=== PATIENT | male | born 1980 | race Caucasian/White ===

== ENCOUNTER 2020-05-22 07:05 | Emergency (ER) | payer MEDICAID, SELFPAY ==
[2020-05-22 07:07] VITALS: BP 139/91; PULSE 94; RESP 19; TEMP 37.1; O2SAT 96; BMI 31.0
--- NOTE | 2020-05-22 07:20 | XR_ITS ---
PROCEDURE: XR ANKLE LT 2V CLINICAL INDICATION: injury Pain and swelling COMPARISON: No exams were available for comparison FINDINGS: There is a tiny calcific density at the tip of the medial malleolus which may be due to small avulsion fracture. There is generalized soft tissue swelling. IMPRESSION: Soft tissue swelling with small avulsion fracture at the tip medial malleolus Dictated by: Esau Renee MD 05/22/2020 08:45 Esau Renee MD in [place] 05/22/2020 08:45
--- NOTE | 2020-05-22 07:23 | HMH.EDLOEX ---
ED Disposition Clinical Impression: Ankle fracture Qualifiers: Encounter type: initial encounter Fracture type: closed Laterality: left Qualified Code(s): S82.892A - Other fracture of left lower leg, initial encounter for closed fracture Disposition: Home, Self-Care Condition on Discharge: Good Instructions: Ankle Fracture Additional Instructions: will see dr perry this am Referrals: Mickey Morris [Primary Care Provider] - Kirti Rojas DPM [Staff Physician] - - Critical Care Critical Care Time: No Attestation: On 05/22/20, the high probability of a clinically significant, sudden or life threatening deterioration of the following system(s) required my full and direct attention, intervention and personal management. The time I documented below is in addition to time spent performing reported procedures but includes the following listed in this critical care notation. Medical Decision Making - Medical Records Medical records reviewed: Yes: I reviewed the patient's medical records. - Dario Inquiry Pt receiving controlled substance: No Vital Signs: 05/22/20 07:07 Temperature 98.7 F Temperature Source Oral Pulse Rate [Left Radial] 94 H Respiratory Rate 19 Blood Pressure [Right Arm] 139/91 H Blood Pressure Mean [Right Arm] 107 Blood Pressure Source [Right Arm] Automatic Cuff Blood Pressure Position [Right Arm] Sitting 02 Sat by Pulse Oximetry 96 Oxygen Delivery Method Room Air Orders (Tests/Meds): ED MEDICATIONS Discontinued Medications Generic Name Dose Route Start Last Admin Trade Name Freq PRN Reason Stop Dose Admin Ibuprofen 800 mg 05/22/20 07:21 05/22/20 07:26 Ibuprofen 200mg/10ml Susp Udc PO 05/22/20 07:22 800 mg ONCE ONE Administration - Radiology Data #1 Image(s): Ankle Image Reviewed: Yes I reviewed the patient's radiology image Preliminary Findings: No Fracture Seen - CT Data CT Scan: Other (ankle ) Time Received: 09:[address] Reviewed: Yes: I have viewed the radiologist's interpretation Preliminary Findings: Abnormal (see report ) - Physician Consults Physician Consulted: [email or web address] Reason -: Pt condition Lower Extremity Injury HPI - General Chief Complaint: Extremity Injury, Lower Stated Complaint: ao @ 1930 1104 injury to L ankle Time Seen by Provider: 05/22/20 07:23 Mode of Arrival: Wheelchair Source of Information: Patient, Medical Record Limitations: No Limitations Description of Symptoms (Recalled from ER Triage Doc. by RN): c/o left ankle pain after falling last night when he was trying to get out of the door with his dogs. Denies any other injuries at this time. - History of Present Illness HPI Narrative: acute lt ankle injury last pm with swelling and tenderness and dec wt bearing MD complaint: ankle injury Onset (ago): day(s) Injury: Left: ankle Type of Injury: eversion Place: home Severity: severe Context: walking Associated symptoms: snap/pop sensation, swelling, unable to bear weight Other symptoms: none - Related Data Home Medications Medication Instructions Recorded Confirmed No Known Home Medications 05/22/20 05/22/20 Allergies Allergy/AdvReac Type Severity Reaction Status Date / Time No Known Allergies Allergy Verified 05/22/20 07:26 [facility] History - Hepatitis A Screen Drug use history?: No High risk sexual behaviors?: No History of sexually transmitted infection?: No Currently employed?: No Childcare worker?: No Do you have indoor plumbing?: Yes Do you have electricity?: Yes Attestation statement:: This patient has been screened for Hepatitis A risk factors. I have reviewed the patient's past medical history: Yes - Social History Alcohol Intake: never Occupational Status: employed ROS Obtained: Yes All systems reviewed & no additional complaints - Musculoskeletal Musculoskeletal: Reports as per HPI, Reports joint pain, Reports joint swelling, Reports limited range of motion Physical Exam -
--- NOTE | 2020-05-22 08:06 | CT_ITS ---
PROCEDURE: CT ANKLE LT WO CON CLINICAL HISTORY: pain Pain and swelling following injury COMPARISON: CR XR ANKLE LT 2V from 05/22/2020 TECHNIQUE: Axial images obtained with sagittal and coronal reformats. All CT scans at the facility use one or more dose reduction, viz: automated exposure control, ma/kV adjustment per patient size (including targeted exams where dose is matched to indication, i.e. head), or iterative reconstruction technique. FINDINGS: There is generalized soft tissue swelling both along the medial and lateral aspect of the ankle. There is a faint calcific density just distal to the tip of the medial malleolus with a small defect within the tip of the medial malleolus consistent with an avulsion fracture. The talar dome has an unremarkable appearance and the ankle mortise appears preserved. IMPRESSION: Minimally displaced avulsion fracture of the tip of the medial malleolus with generalized soft tissue swelling. Dictated by: Esau Renee MD 05/22/2020 08:42 Esau Renee MD in [place] 05/22/2020 08:42
[2020-05-22 09:45] VITALS: BP 132/87; PULSE 87; RESP 17; TEMP 36.7; O2SAT 99
== END 2020-05-22 09:45 | disposition home or self-care (01) ==
PROVIDERS: Emergency Provider Emergency Medicine; PCP Pediatrics
DX: S82.892A Other fracture of left lower leg, initial encounter for closed fracture (principal); W01.0XXA Fall on same level from slipping, tripping and stumbling without subsequent striking against object, initial encounter; Y92.019 Unspecified place in single-family (private) house as the place of occurrence of the external cause
CPT/HCPCS: 73600; 73700; 99282

== ENCOUNTER 2022-02-22 08:42 | Emergency (ER) | payer MEDICAID, SELFPAY ==
[2022-02-22] VITALS (7 sets, daily range): BP systolic 98–138; BP diastolic 63–88; PULSE 62–82; RESP 16–18; TEMP 36.7; O2SAT 96–98; BMI 42.5
--- NOTE | 2022-02-22 09:23 | HMH.EDABDPAI ---
ED Disposition Clinical Impression: Gastroenteritis Disposition: Home, Self-Care Condition on Discharge: Good Instructions: DI for Gastritis Prescriptions: Promethazine HCl [Phenergan 25mg tab] 25 mg PO BID #12 tab Transmission Status: Pending to [facility] Referrals: Enio Morris [Primary Care Provider] - - Critical Care Critical Care Time: No Attestation: On 02/22/22, the high probability of a clinically significant, sudden or life threatening deterioration of the following system(s) required my full and direct attention, intervention and personal management. The time I documented below is in addition to time spent performing reported procedures but includes the following listed in this critical care notation. Medical Decision Making - Medical Records Medical records reviewed: Yes: I reviewed the patient's medical records. - Dario Inquiry Pt receiving controlled substance: No Vital Signs: 02/22/22 08:44 02/22/22 09:43 02/22/22 10:00 Temperature 98.1 F Temperature Source Oral Pulse Rate 82 65 Pulse Rate [Right Radial] 74 Respiratory Rate 16 16 18 Blood Pressure 138/82 111/78 Blood Pressure [Right Arm] 118/88 Blood Pressure Mean 102 90 Blood Pressure Mean [Right Arm] 98 Blood Pressure Source [Right Arm] Automatic Cuff Blood Pressure Position [Right Arm] Sitting 02 Sat by Pulse Oximetry 98 97 97 Oxygen Delivery Method Room Air 02/22/22 10:31 02/22/22 11:01 02/22/22 11:32 Temperature Temperature Source Pulse Rate 62 66 69 Pulse Rate [Right Radial] Respiratory Rate 18 Blood Pressure 98/63 L 115/72 132/86 Blood Pressure [Right Arm] Blood Pressure Mean 78 101 Blood Pressure Mean [Right Arm] Blood Pressure Source [Right Arm] Blood Pressure Position [Right Arm] 02 Sat by Pulse Oximetry 97 96 97 Oxygen Delivery Method - Lab Data Lab Results 02/22/22 09:35: WBC 6.9, RBC 4.60, Hgb 14.2, Hct 43.1, MCV 93.6, MCH 31.0, MCHC 33.1, RDW 13.5, Plt Count 265, MPV 7.6, Neut % (Auto) 61.1, Lymph % (Auto) 28.1, [place] % (Auto) 6.3, Eos % (Auto) 2.5, Baso % (Auto) 1.9, Neut # (Auto) 4.2, Lymph # (Auto) 1.9, [place] # (Auto) 0.4, Eos # (Auto) 0.2, Baso # (Auto) 0.1 02/22/22 09:35: Sodium 140, Potassium 3.5, Chloride 103, Carbon Dioxide 28, Anion Gap 12.5, BUN 10, Creatinine 0.90, Estimated Creat Clear 102, Estimated GFR 92, Est GFR ( Amer) 111, Glucose 132 H, Calcium 9.5, Total Bilirubin 0.8, AST 77 H, ALT 105 H, Alkaline Phosphatase 84, Total Protein 8.4 H, Albumin 4.5, Globulin 3.9 H, Albumin/Globulin Ratio 1.2, Lipase 67 Result diagrams: 02/22/22 09:35 02/22/22 09:35 Orders (Tests/Meds): ED MEDICATIONS Generic Name Dose Route Start Last Admin Trade Name Freq PRN Reason Stop Dose Admin Sodium Chloride 8 ml 02/22/22 09:09 Sodium Chloride 0.9% 10ml Vial IV 03/24/22 09:08 NEEDED PRN dilute pepcid Discontinued Medications Generic Name Dose Route Start Last Admin Trade Name Freq PRN Reason Stop Dose Admin Famotidine 20 mg 02/22/22 09:09 02/22/22 09:39 Famotidine 20mg/2ml Vial IV 02/22/22 09:10 20 mg ONCE ONE Administration Sodium Chloride 1,000 mls @ 999 mls/hr 02/22/22 09:15 02/22/22 09:39 Sod Chlor 0.9% 1000ml Bag IV 02/22/22 10:15 999 mls/hr .Q1H1M MOE Administration Ketorolac Tromethamine 30 mg 02/22/22 09:09 02/22/22 09:40 Ketorolac 30mg/Ml Vial IV 02/22/22 09:10 30 mg ONCE ONE Administration Ondansetron HCl 4 mg 02/22/22 09:09 02/22/22 09:39 Ondansetron 4mg/2ml Vial IV 02/22/22 09:10 4 mg ONCE ONE Administration - CT Data CT Scan: Abdomen, Pelvis Time Received: 11:[address] Reviewed: Yes: I have reviewed the patient's CT results, I have viewed the radiologist's interpretation Findings Narrative: IMPRESSION: No acute process of the abdomen or pelvis. - Reevaluation(s) Time: 11:53 Reevaluation #1: On reevaluation, patient is feeling better. Re
--- NOTE | 2022-02-22 09:44 | PC.NURSE ---
pt medicated with no new complaints . pt resting
[2022-02-22 09:50] LABS: Basophils # 0.1 K/mm3 (0-0.2); Basophils % 1.9 % (0.1-2.0); Eosinophils # 0.2 K/mm3 (0.0-0.4); Eosinophils % 2.5 % (0.1-12.0); Hematocrit 43.1 % (42.0-52.0); Hemoglobin 14.2 g/dL (14.1-18.0); Lymphocytes # 1.9 K/mm3 (0.7-4.5); Lymphocytes % 28.1 % (10-50); Mean Corpuscular HGB Conc 33.1 g/dL (31.8-35.4); Mean Corpuscular Volume 93.6 fl (80-94); Mean Platelet Volume 7.6 fl (7.4-10.4); Monocytes # 0.4 K/mm3 (0.1-1.0); Monocytes % 6.3 % (1.7-9.3); Neutrophils # 4.2 K/mm3 (1.8-7.8); Neutrophils % 61.1 % (37.0-80.0); Platelet Count 265 K/mm3 (142-424); Red Cell Distribution Width 13.5 % (11.5-17.5); White Blood Count 6.9 K/mm3 (4.8-10.8)
[2022-02-22 09:59] LABS: Alanine Aminotransferase 105 U/L (12-78); Albumin Level 4.5 g/dl (3.5-5.0); Albumin/Globulin Ratio 1.2 (1.1-1.8); Alkaline Phosphatase 84 U/L (38-126); Anion Gap 12.5 mEq/L (5-15); Aspartate Amino Transferase 77 U/L (17-59); Bilirubin,Total 0.8 mg/dl (0.2-1.3); Blood Urea Nitrogen 10 mg/dl (9-20); Calcium 9.5 mg/dl (8.4-10.2); Carbon Dioxide 28 mmol/L (22.0-30.0); Chloride 103 mmol/L (98-107); Creatinine Clearance Estimated 102 mL/min (50-200); Estimated Glomerular Filt Rate 92 ml/min (>60); GFR (African American) 111 ML/MIN (>60); Globulin 3.9 g/dL (1.3-3.2); Glucose 132 mg/dl (74-100); Lipase 67 U/L (23-300); Potassium 3.5 mmoL/L (3.5-5.1); Sodium 140 mmol/L (136-145); Total Protein,Serum 8.4 g/dl (6.3-8.2)
--- NOTE | 2022-02-22 10:00 | PC.NURSE ---
rounded on pt at this time, pt sitting up in bed, reports headache has improved. Pt states no needs at this time, call light within reach, pt oriented to call light. will continue to monitor.
--- NOTE | 2022-02-22 10:17 | CT_ITS ---
FINAL REPORT TECHNIQUE: Axial images through the abdomen and pelvis were performed without contrast.This study was performed with techniques to keep radiation doses as low as reasonably achievable, (ALARA). Individualized dose reduction techniques using automated exposure control or adjustment of mA and/or kV according to the patient's size were employed. CLINICAL HISTORY: lower abdominal pain COMPARISON: 03/18/2017 FINDINGS: ABDOMEN: The lung bases demonstrate mild bibasilar atelectasis or scarring. The heart size is normal. Limited images of the liver demonstrate fatty infiltration. The gallbladder is present. The spleen is normal. No adrenal mass is identified. The aorta is normal in caliber. There is no significant free fluid or adenopathy. There is no nephrolithiasis. There is no hydronephrosis. PELVIS: The appendix is normal. There is a small right inguinal hernia containing fat. The urinary bladder is unremarkable. There is no significant free fluid or adenopathy. IMPRESSION: No acute process of the abdomen or pelvis. Reviewed, Interpreted and Dictated by All Garcia III, MD Transcribed by Valarie Ram Authenticated and [facility]
--- NOTE | 2022-02-22 10:36 | PC.NURSE ---
pt in radiology
--- NOTE | 2022-02-22 10:55 | PC.NURSE ---
rounded on pt, requesting water, waiting on CT scan results, educated pt and verbalized understanding
--- NOTE | 2022-02-22 11:34 | PC.NURSE ---
rounded on pt, updated about scan report complete, waiting on MD to review results, no needs at this time
== END 2022-02-22 12:00 | disposition home or self-care (01) ==
PROVIDERS: Emergency Provider Emergency Medicine; PCP Family Medicine
DX: R10.9 Unspecified abdominal pain (principal); R11.2 Nausea with vomiting, unspecified; R51.9 Headache, unspecified; K21.9 Gastro-esophageal reflux disease without esophagitis
CPT/HCPCS: 36415; 74176; 80053; 83690; 85025; 96361; 96374; 96375; 99285; J2405

== ENCOUNTER 2022-02-26 10:46 | Emergency (ER) | payer MEDICAID, SELFPAY ==
--- NOTE | 2022-02-26 10:50 | PC.NURSE ---
Ivette RN at BS for triage
[2022-02-26 11:01] VITALS: BP 145/94; PULSE 74; O2SAT 95
[2022-02-26 11:17] VITALS: BP 156/113; PULSE 82; RESP 17; TEMP 36.9; O2SAT 95; BMI 45.1
--- NOTE | 2022-02-26 11:27 | PC.NURSE ---
MARGA DUPREE at for patient eval
[2022-02-26 11:31] VITALS: BP 159/106; PULSE 69; O2SAT 96
--- NOTE | 2022-02-26 11:32 | CT_ITS ---
FINAL REPORT CLINICAL HISTORY: nocturnal headaches COMPARISON: 03/18/2017 FINDINGS: Axial images of the head were obtained without contrast. Coronal reformatted images were also obtained.This study was performed with techniques to keep radiation doses as low as reasonably achievable (ALARA). Individualized dose reduction techniques using automated exposure control or adjustment of mA and/or kV according to the patient's size were employed. There is no evidence of intracranial hemorrhage or mass. The ventricular size is within normal limits. There is no evidence of shift of the midline structures. No abnormal extra axial fluid collection is identified. There are prominent proximal bilateral middle cerebral arteries of uncertain significance. No skull abnormality is seen on the bone window images. IMPRESSION: Prominent proximal bilateral middle cerebral arteries of uncertain significance. Consider correlation with MRA or CTA. Reviewed, Interpreted and Dictated by All Garcia III, MD Transcribed by Veronica Villalobos Authenticated and [facility]
--- NOTE | 2022-02-26 11:32 | HMH.EDGENADL ---
ED Disposition Clinical Impression: Vomiting, Transaminitis, Headache Disposition: Home, Self-Care Condition on Discharge: Good Instructions: DI for Diarrhea and Traveler's Diarrhea -- Adult, DI for Diarrhea and Traveler's Diarrhea -- Child, DI for Nausea -- Adult, DI for Nausea -- Child Additional Instructions: At this time was felt you are safe to be discharged home. If new or worsening symptoms please do not hesitate to return to the emergency department. Please call and schedule an appointment with one of the providers listed in the packet that was given to you at discharge for early next week. Referrals: Enio Morris [Primary Care Provider] - - Critical Care Critical Care Time: No Attestation: On 02/26/22, the high probability of a clinically significant, sudden or life threatening deterioration of the following system(s) required my full and direct attention, intervention and personal management. The time I documented below is in addition to time spent performing reported procedures but includes the following listed in this critical care notation. Medical Decision Making - Dario Inquiry Pt receiving controlled substance: No Vital Signs: 02/26/22 11:01 02/26/22 11:17 02/26/22 11:31 Temperature 98.5 F Temperature Source Oral Pulse Rate 74 69 Pulse Rate [Left Radial] 82 Respiratory Rate 17 Blood Pressure 145/94 H 159/106 H Blood Pressure [Right Arm] 156/113 H Blood Pressure Mean 111 123 Blood Pressure Mean [Right Arm] 127 02 Sat by Pulse Oximetry 95 95 96 Oxygen Delivery Method Room Air Room Air Room Air 02/26/22 12:30 Temperature Temperature Source Pulse Rate 69 Pulse Rate [Left Radial] Respiratory Rate Blood Pressure 143/92 H Blood Pressure [Right Arm] Blood Pressure Mean 115 Blood Pressure Mean [Right Arm] 02 Sat by Pulse Oximetry 96 Oxygen Delivery Method Room Air - Lab Data Lab Results 02/26/22 11:34: WBC 8.2, RBC 4.54 L, Hgb 14.0 L, Hct 43.1, MCV 95.0 H, MCH 30.8, MCHC 32.5, RDW 13.5, Plt Count 286, MPV 8.0, Neut % (Auto) 84.9 H, Lymph % (Auto) 10.5, [place] % (Auto) 3.6, Eos % (Auto) 0.2, Baso % (Auto) 0.8, Neut # (Auto) 7.0, Lymph # (Auto) 0.9, [place] # (Auto) 0.3, Eos # (Auto) 0.0, Baso # (Auto) 0.1 02/26/22 11:34: Sodium 141, Potassium 4.0, Chloride 102, Carbon Dioxide 31 H, Anion Gap 12.0, BUN 12, Creatinine 0.90, Estimated Creat Clear 96, Estimated GFR 92, Est GFR ( Amer) 111, Glucose 165 H, Calcium 9.7, Total Bilirubin 0.6, AST 98 H, ALT 129 H, Alkaline Phosphatase 84, Total Protein 8.4 H, Albumin 4.6, Globulin 3.8 H, Albumin/Globulin Ratio 1.2, Lipase 126 02/26/22 11:34: SARS-CoV-2 (PCR) Not detected, Influenza A Untype (PCR) Not detected, Influenza Type B (PCR) Not detected Result diagrams: 02/26/22 11:34 02/26/22 11:34 Orders (Tests/Meds): ED MEDICATIONS Generic Name Dose Route Start Last Admin Trade Name Freq PRN Reason Stop Dose Admin Sodium Chloride 10 ml 02/26/22 11:21 Sodium Chloride 0.9% 10ml Flush Syringe IV 03/28/22 11:20 NEEDED PRN Maintain IV Site Discontinued Medications Generic Name Dose Route Start Last Admin Trade Name Freq PRN Reason Stop Dose Admin Lactated Ringer's 1,000 mls @ 999 mls/hr 02/26/22 11:30 02/26/22 11:45 Lactated Ringer's 1000 Ml Bag IV 02/26/22 12:30 999 mls/hr .Q1H1M MOE Administration Iopamidol 100 ml 02/26/22 13:31 02/26/22 13:32 Iopamidol-370 (76%);100ml Bottle IV 02/26/22 13:32 100 ml ONCE ONE Administration Ondansetron HCl 4 mg 02/26/22 11:21 02/26/22 12:03 Ondansetron 4mg/2ml Vial IV 02/26/22 11:22 4 mg ONCE ONE Administration Sodium Chloride 10 ml 02/26/22 13:31 02/26/22 13:32 Sodium Chloride 0.9% 10ml Syr (Rad Only) IV 02/26/22 13:32 10 ml ONCE ONE Administration Sodium Chloride 50 ml 02/26/22 13:31 02/26/22 13:32 0.9 % Sodium Chloride 50 Ml Vial IV 02/26/22 13:32 50 ml ONCE ONE Administration Medical Decision Narr
--- NOTE | 2022-02-26 11:44 | PC.NURSE ---
pt to radiology via wc with military administrative technician at this time
[2022-02-26 11:46] LABS: Coronavirus 19, PCR Not Detected (NotDetected); Influenza A, PCR Not Detected (NotDetected); Influenza B, PCR Not Detected (NotDetected)
--- NOTE | 2022-02-26 11:49 | PC.NURSE ---
pt return from radiology
--- NOTE | 2022-02-26 11:50 | PC.NURSE ---
pt back from radiology
[2022-02-26 11:58] LABS: Basophils # 0.1 K/mm3 (0-0.2); Basophils % 0.8 % (0.1-2.0); Chloride 102 mmol/L (98-107); Eosinophils % 0.2 % (0.1-12.0); Hematocrit 43.1 % (42.0-52.0); Lymphocytes # 0.9 K/mm3 (0.7-4.5); Lymphocytes % 10.5 % (10-50); Mean Corpuscular HGB Conc 32.5 g/dL (31.8-35.4); Mean Corpuscular Hemoglobin 30.8 pg (27.0-31.2); Monocytes # 0.3 K/mm3 (0.1-1.0); Monocytes % 3.6 % (1.7-9.3); Neutrophils % 84.9 % (37.0-80.0); Platelet Count 286 K/mm3 (142-424); Red Blood Count 4.54 M/mm3 (4.60-6.20); Red Cell Distribution Width 13.5 % (11.5-17.5); Sodium 141 mmol/L (136-145); White Blood Count 8.2 K/mm3 (4.8-10.8)
[2022-02-26 12:01] LABS: Alanine Aminotransferase 129 U/L (12-78); Alkaline Phosphatase 84 U/L (38-126); Aspartate Amino Transferase 98 U/L (17-59); Bilirubin,Total 0.6 mg/dl (0.2-1.3); Blood Urea Nitrogen 12 mg/dl (9-20); Carbon Dioxide 31 mmol/L (22.0-30.0); Creatinine Clearance Estimated 96 mL/min (50-200); Estimated Glomerular Filt Rate 92 ml/min (>60); GFR (African American) 111 ML/MIN (>60); Lipase 126 U/L (23-300)
[2022-02-26 12:02] LABS: Albumin Level 4.6 g/dl (3.5-5.0); Albumin/Globulin Ratio 1.2 (1.1-1.8); Calcium 9.7 mg/dl (8.4-10.2); Globulin 3.8 g/dL (1.3-3.2); Glucose 165 mg/dl (74-100); Total Protein,Serum 8.4 g/dl (6.3-8.2)
--- NOTE | 2022-02-26 12:28 | PC.NURSE ---
pt updated on POC- awaiting ct report. no needs voiced at this time
[2022-02-26 12:30] VITALS: BP 143/92; PULSE 69; O2SAT 96
--- NOTE | 2022-02-26 13:06 | CT_ITS ---
FINAL REPORT TECHNIQUE: Thin section axial CT with IV contrast supplemented with multiplanar reconstruction under CT angiogram protocol. 3-D reconstructions were performed. This study was performed with techniques to keep radiation doses as low as reasonably achievable (ALARA). Individualized dose reduction techniques using automated exposure control or adjustment of mA and/or kV according to the patient''s size were employed. CLINICAL HISTORY: prominent MCA non con, vomiting FINDINGS: The distal vertebral, basilar and distal internal carotid arteries have an unremarkable appearance. No aneurysm is seen. Major intracranial vessels are patent without significant stenosis. There is ectasia of the M 1 segments of the middle cerebral arteries bilaterally. IMPRESSION: No evidence of aneurysm or dissection. Reviewed, Interpreted and Dictated by All Garcia III, MD Transcribed by Veronica Villalobos Authenticated and [facility][1]
--- NOTE | 2022-02-26 13:09 | PC.NURSE ---
ER MD at speaking with patient regarding update on POC/results
--- NOTE | 2022-02-26 13:22 | PC.NURSE ---
pt to CT via wc with operations and maintenance technican
--- NOTE | 2022-02-26 13:33 | PC.NURSE ---
pt back from CT
[2022-02-26 15:07] VITALS: BP 148/98; PULSE 97; RESP 18; TEMP 36.9; O2SAT 97
== END 2022-02-26 15:08 | disposition home or self-care (01) ==
PROVIDERS: Emergency Provider Emergency Medicine; PCP Family Medicine
DX: R51.9 Headache, unspecified (principal); R11.2 Nausea with vomiting, unspecified; R19.7 Diarrhea, unspecified; K21.9 Gastro-esophageal reflux disease without esophagitis; Z20.822 Contact with and (suspected) exposure to COVID-19
CPT/HCPCS: 70450; 70496; 80053; 83690; 85025; 96361; 96374; 99285; C9803; J2405; Q9967; U0003; U0005

== ENCOUNTER → 2022-03-29 10:38 | Outpatient (CLI) | payer MEDICAID, SELFPAY ==
--- NOTE | 2022-03-29 10:38 | MR_ITS ---
FINAL REPORT CLINICAL HISTORY: headaches with vomiting x3-4 weeks. COMPARISON: CT scan dated February 26, 2022 FINDINGS: Multiplanar MR imaging of the brain was performed without and with contrast. There is no evidence of intracranial hemorrhage or mass. No abnormal extra-axial fluid collection is seen. The ventricular size is within normal limits. There is no evidence of shift of the midline structures. The posterior fossa and brainstem have an unremarkable appearance. No area of abnormal restricted diffusion is identified. No abnormal contrast enhancement is seen. Normal major vessel vascular flow voids are noted. There is mild mucosal thickening in the maxillary sinuses and the ethmoid air cells. IMPRESSION: No acute intracranial abnormality identified. Reviewed, Interpreted and Dictated by All Garcia III, MD Transcribed by Stephenie Maki Authenticated and [facility]
== END ==
PROVIDERS: PCP Emergency Medicine; Visit Provider Emergency Medicine
DX: R51.9 Headache, unspecified (principal)
CPT/HCPCS: 70553; A9576

== ENCOUNTER → 2022-04-13 11:19 | Outpatient (CLI) | payer MEDICAID, SELFPAY ==
[2022-04-13 13:08] LABS: Erythrocyte Sedimentation Rate 16 mm/hr (0-15)
[2022-04-13 13:26] LABS: Thyroid Stimulating Hormone 2.09 uIU/mL (0.465-4.68)
[2022-04-13 14:02] LABS: Vitamin B12 917 pg/mL (239-931)
[2022-04-13 14:03] LABS: Folate 7.25 ng/mL
[2022-04-14 11:24] LABS: Rapid Plasma Reagin Ab Titer Non Reactive (NonRea<1:1)
[2022-04-14 13:10] LABS: Anti-Centromere B Antibodies <0.2 AI (0.0-0.9); Anti-DNA (DS) Ab Qn 1 IU/mL (0-9); Anti-Jo-1 <0.2 AI (0.0-0.9); Anti-Smith Antibody <0.2 AI (0.0-0.9); Antichromatin Antibodies <0.2 AI (0.0-0.9); Antiscleroderma-70 Antibodies 0.2 AI (0.0-0.9); RNP Antibodies <0.2 AI (0.0-0.9); Sjogren's Anti-SS-A 0.6 AI (0.0-0.9); Sjogren's Anti-SS-B <0.2 AI (0.0-0.9)
[2022-04-21 15:10] LABS: IgG P18 Ab. Absent (.); IgG P23 Ab. Absent (.); IgG P28 Ab. Absent (.); IgG P30 Ab. Absent (.); IgG P39 Ab. Absent (.); IgG P41 Ab. Absent (.); IgG P45 Ab. Absent (.); IgG P58 Ab. Absent (.); IgG P66 Ab. Absent (.); IgG P93 Ab. Absent (.); IgM P23 Ab. Absent (.); IgM P39 Ab. Absent (.); IgM P41 Ab. Absent (.); Lyme IgG WB Interp. Negative (.); Lyme IgM WB Interp. Negative (.)
== END ==
PROVIDERS: PCP Emergency Medicine; Visit Provider Nurse Practitioner Family
DX: R42 Dizziness and giddiness (principal); F10.11 Alcohol abuse, in remission; F19.11 Other psychoactive substance abuse, in remission; G44.52 New daily persistent headache (NDPH); G47.33 Obstructive sleep apnea (adult) (pediatric); G47.00 Insomnia, unspecified; G89.29 Other chronic pain; H53.123 Transient visual loss, bilateral; R06.83 Snoring; R11.10 Vomiting, unspecified; R73.9 Hyperglycemia, unspecified; R94.5 Abnormal results of liver function studies; Z91.89 Other specified personal risk factors, not elsewhere classified
CPT/HCPCS: 36415; 82607; 82746; 83036; 84443; 85651; 86225; 86235; 86592; 86617; 95806

== ENCOUNTER → 2022-04-19 10:14 | Outpatient (CLI) | payer MEDICAID, SELFPAY ==
--- NOTE | 2022-04-19 10:18 | CT_ITS ---
FINAL REPORT TECHNIQUE: Thin section axial CT with IV contrast supplemented with multiplanar reconstruction under CT angiogram protocol. This study was performed with techniques to keep radiation doses as low as reasonably achievable (ALARA). Individualized dose reduction techniques using automated exposure control or adjustment of mA and/or kV according to the patient''s size were employed. NASCET criteria was utilized during interpretation. CLINICAL HISTORY: Eval posterior circulation FINDINGS: Aortic arch: Arch shows no significant narrowing. Great vessel origins are widely patent. Right carotid: No significant stenosis is seen of the cervical common carotid artery. The internal carotid artery is tortuous without evidence of stenosis or occlusion. The external carotid artery is patent. Left carotid: No significant stenosis is seen of the cervical common carotid artery. The internal carotid artery is tortuous without evidence of stenosis or occlusion. The external carotid artery is patent. Vertebral: Left vertebral artery is dominant. No significant stenosis is present. Review of the remainder of the neck reveals a 31 mm left thyroid lobe mass which is nonspecific. There is mucosal thickening in the left maxillary sinus and multiple ethmoid sinuses. IMPRESSION: No evidence of significant carotid stenosis. 31 mm left thyroid lobe mass, nonspecific. Consider ultrasound of the thyroid for further evaluation. Reviewed, Interpreted and Dictated by All Garcia III, MD Transcribed by Monica Rhoades Authenticated and . [facility]
--- NOTE | 2022-04-19 10:39 | CT_ITS ---
FINAL REPORT TECHNIQUE: Thin section axial CT with IV contrast supplemented with multiplanar reconstruction under CT angiogram protocol. 3-D reconstructions were performed. This study was performed with techniques to keep radiation doses as low as reasonably achievable (ALARA). Individualized dose reduction techniques using automated exposure control or adjustment of mA and/or kV according to the patient''s size were employed. CLINICAL HISTORY: Dizziness, transient blindness, persistent headach COMPARISON: 02/26/2022 FINDINGS: The distal vertebral and basilar arteries have an unremarkable appearance. No aneurysm is seen. The left M1 segment appears smaller and more irregular than on the prior exam. This is of uncertain significance and may be due to spasm or vasculitis. The right middle cerebral artery and anterior cerebral artery appears normal. The posterior cerebral artery appears smaller than the prior exam and may be due to spasm or vasculitis. There appears to be diffuse effacement of the sulci worrisome for diffuse edema. IMPRESSION: No evidence of aneurysm or dissection. Irregularity of the left M1 segment and posterior cerebral artery may be due to spasm or vasculitis. Diffuse effacement of the sulci worrisome for diffuse edema. Follow-up CTA or catheter angiography may be helpful. Reviewed, Interpreted and Dictated by All Garcia III, MD Transcribed by Monica Rhoades Authenticated and [facility]
[2022-04-19 14:40] LABS: Basophils # 0.1 K/mm3 (0-0.2); Basophils % 1.1 % (0.1-2.0); Eosinophils # 0.2 K/mm3 (0.0-0.4); Eosinophils % 2.6 % (0.1-12.0); Hematocrit 41.1 % (42.0-52.0); Hemoglobin 13.9 g/dL (14.1-18.0); Lymphocytes # 1.7 K/mm3 (0.7-4.5); Lymphocytes % 26.7 % (10-50); Mean Corpuscular HGB Conc 33.9 g/dL (31.8-35.4); Mean Corpuscular Hemoglobin 31.7 pg (27.0-31.2); Mean Corpuscular Volume 93.5 fl (80-94); Mean Platelet Volume 7.8 fl (7.4-10.4); Monocytes # 0.4 K/mm3 (0.1-1.0); Monocytes % 6.6 % (1.7-9.3); Neutrophils # 3.9 K/mm3 (1.8-7.8); Platelet Count 253 K/mm3 (142-424); Red Blood Count 4.39 M/mm3 (4.60-6.20); White Blood Count 6.2 K/mm3 (4.8-10.8)
[2022-04-19 14:49] LABS: INR 0.98 (0.9-1.1); Prothrombin Time 10.6 seconds (10.1-12.5)
[2022-04-19 15:51] LABS: Chloride 99 mmol/L (98-107); Sodium 139 mmol/L (136-145)
[2022-04-19 16:29] LABS: Alanine Aminotransferase 182 U/L (12-78); Albumin Level 4.5 g/dl (3.5-5.0); Albumin/Globulin Ratio 1.3 (1.1-1.8); Alkaline Phosphatase 80 U/L (38-126); Aspartate Amino Transferase 131 U/L (17-59); Blood Urea Nitrogen 16 mg/dl (9-20); Calcium 9.5 mg/dl (8.4-10.2); Carbon Dioxide 26 mmol/L (22.0-30.0); Estimated Glomerular Filt Rate 92 ml/min (>60); GFR (African American) 111 ML/MIN (>60); Globulin 3.6 g/dL (1.3-3.2); Glucose 101 mg/dl (74-100); Total Protein,Serum 8.1 g/dl (6.3-8.2)
[2022-04-19 16:37] LABS: Bilirubin,Total 0.1 mg/dl (0.2-1.3)
[2022-04-21 06:10] LABS: HIV Screen 4th Generation wRfx Non Reactive (Non Reactive)
[2022-04-21 07:10] LABS: Hep A Ab, Total Negative (Negative); Hep B Core Ab, Total Negative (Negative); Hep B Surface Ab, Qual Non Reactive (.); Hepatitis B Surface Antigen Negative (Negative); Hepatitis C Antibody >11.0 s/co ratio (0.0-0.9)
[2022-04-22 04:11] LABS: ALT (SGPT) P5P 162 IU/L (0-55); Alpha 2-Macroglobulins, Qn 128 mg/dL (110-276); Apolipoprotein A-1 141 mg/dL (101-178); Bilirubin, Total 0.3 mg/dL (0.0-1.2); Fibrosis Score 0.17 (0.00-0.21); GGT 187 IU/L (0-65); Haptoglobin 91 mg/dL (23-355); Necroinflammat Activity Grade A3-Severe activity (.); Necroinflammat Activity Score 0.71 (0.00-0.17)
[2022-04-22 17:27] LABS: HCV Genotype Charge YES; Hepatitis C Genotype 3 (.)
== END ==
PROVIDERS: PCP Emergency Medicine; Visit Provider Nurse Practitioner Family
DX: R42 Dizziness and giddiness (principal); G44.52 New daily persistent headache (NDPH); G89.29 Other chronic pain; H53.123 Transient visual loss, bilateral; R11.10 Vomiting, unspecified; R94.5 Abnormal results of liver function studies; R73.9 Hyperglycemia, unspecified; F10.11 Alcohol abuse, in remission; F19.11 Other psychoactive substance abuse, in remission; G47.00 Insomnia, unspecified; R06.83 Snoring; Z91.89 Other specified personal risk factors, not elsewhere classified; Z11.4 Encounter for screening for human immunodeficiency virus [HIV]
CPT/HCPCS: 36415; 70496; 70498; 80053; 81596; 85025; 85610; 86703; 86704; 86706; 86708; 87340; 87380; 87522; 87902; G0432; Q9967

== ENCOUNTER → 2022-05-04 14:09 | Outpatient (CLI) | payer MEDICAID, SELFPAY ==
--- NOTE | 2022-05-04 14:13 | US_ITS ---
FINAL REPORT CLINICAL HISTORY: thyroid mass FINDINGS: Sonographic images of the thyroid were obtained. The right lobe of the thyroid measures 4.9 x 1.3 x 1.6 cm. The left lobe of the thyroid measures 5.2 x 2.4 x 2.3 cm. The isthmus measures 0.40 cm. There is a solid, hypoechoic nodule in the lower pole of the left thyroid measuring 23 x 18 x 16 mm consistent with TI-RADS category 4. There is a 2nd nodule in the left lower lobe which is solid and hypoechoic measuring 21 x 19 x 17 mm consistent with TI-RADS category 4. IMPRESSION: Two left thyroid lobe nodule consistent with TI-RADS category 4. Recommend ultrasound guided biopsy on both these nodules. Reviewed, Interpreted and Dictated by All Garcia III, MD Transcribed by Veronica Villalobos Authenticated and [facility]
== END ==
PROVIDERS: PCP Emergency Medicine; Visit Provider Nurse Practitioner Family
DX: E07.9 Disorder of thyroid, unspecified (principal)
CPT/HCPCS: 76536

== ENCOUNTER → 2022-05-28 07:30 | Outpatient (CLI) | payer MEDICAID, SELFPAY ==
--- NOTE | 2022-05-28 07:30 | US_ITS ---
FINAL REPORT CLINICAL HISTORY: .na lt thyroid x 2 -- ck harris FINDINGS: Ultrasound guided thyroid biopsy. HISTORY: Left thyroid masses Attending radiologist: Dr. Lucio. Physician personnel assistant: Ck Duckworth PA-C PROCEDURE: After informed consent was obtained and a time-out was performed, the patient was prepped and draped in usual sterile fashion over the left neck. Utilizing local anesthesia and sterile technique with a 25-gauge needle, access to 2 separate lesions was obtained. Three passes were made into 2 separate lesions. The patient received no conscious sedation. The patient tolerated procedure well and left the department in good condition. IMPRESSION: Status post ultrasound guided biopsy of 2 lesions within the left lobe of the thyroid without immediate complication. Films reviewed , interpreted and dictated by Dr. Lucio. Transcribed by Ck Duckworth PA-C. Reviewed, Interpreted and Dictated by Chet Lucio MD Transcribed by LAYLA Johnson Authenticated and [facility]
== END ==
PROVIDERS: PCP Emergency Medicine; Visit Provider Otolaryngology
DX: E07.9 Disorder of thyroid, unspecified (principal); R93.89 Abnormal findings on diagnostic imaging of other specified body structures
CPT/HCPCS: 10005; 76536

== ENCOUNTER → 2022-07-07 13:45 | Outpatient (CLI) | payer MEDICAID, SELFPAY ==
--- NOTE | 2022-07-07 13:45 | MM_ITS ---
PROCEDURE INFORMATION: Exam: Bilateral Diagnostic Breast Tomosynthesis Exam date and time: 07/07/2022 1:55 PM Age: 41 years old Clinical indication: Bilateral breast pain and swelling in this male patient. No reported family history of breast cancer. TECHNIQUE: Imaging protocol: Bilateral Diagnostic tomosynthesis and 2D mammography including computer-aided detection (CAD) when performed. Unilateral or bilateral exam. COMPARISON: No relevant prior studies available. FINDINGS: MAMMOGRAPHY: Breast composition: The breasts are almost entirely fatty. Mass: Few intramammary lymph nodes in both upper outer aspects. No suspicious mass. Architectural distortion: None. Calcifications: No suspicious calcifications. Asymmetric density: None. Skin thickening: None. Axillary adenopathy: None. Other: Symmetric bilateral flame shaped retroareolar opacities compatible with gynecomastia. IMPRESSION: Findings compatible with symmetric bilateral gynecomastia. With history of pain, sonography can be added as clinically indicated. Further evaluation of a painful abnormality should be based on clinical grounds regardless of radiographic findings or lack thereof. ASSESSMENT: BI-RADS Category 2: Benign
== END ==
PROVIDERS: PCP Emergency Medicine; Visit Provider Emergency Medicine
DX: N62 Hypertrophy of breast (principal); N64.4 Mastodynia
CPT/HCPCS: 77062; 77066; G0279

== ENCOUNTER → 2022-08-06 12:43 | Outpatient (CLI) | payer MEDICAID, SELFPAY ==
--- NOTE | 2022-08-06 12:43 | US_ITS ---
PROCEDURE INFORMATION: Exam: US Right Breast, Complete Exam date and time: 08/06/2022 1:10 PM Age: 41 years old Clinical indication: Breast pain; Right TECHNIQUE: Imaging protocol: Complete ultrasound of all four quadrants of the Right breast and the retroareolar regions, including ultrasound of the axilla when performed. COMPARISON: MG MM DIG MAMM BI DX W/CAD 07/07/2022 1:55 PM FINDINGS: Breast: Sonographic images of the right breast including the retroareolar region, all 4 quadrants and the axilla do not demonstrate any solid or cystic masses. Minimal retroareolar breast tissue is present consistent with benign gynecomastia No architectural distortion or acoustical shadowing. No skin thickening or axillary adenopathy. IMPRESSION: No sonographic evidence of malignancy. Minimal benign retroareolar gynecomastia ASSESSMENT: BI-RADS Category 2: Benign
--- NOTE | 2022-08-06 12:43 | US_ITS ---
PROCEDURE INFORMATION: Exam: US Left Breast, Complete Exam date and time: 08/06/2022 1:25 PM Age: 41 years old Clinical indication: Breast pain; Pain in both breast TECHNIQUE: Imaging protocol: Complete ultrasound of all four quadrants of the Left breast and the retroareolar regions, including ultrasound of the axilla when performed. COMPARISON: MG MM DIG MAMM BI DX W/CAD 07/07/2022 1:55 PM FINDINGS: Breast: Sonographic images of the left breast including the retroareolar region, all 4 quadrants and the axilla do not demonstrate any solid or cystic masses. Minimal retroareolar hypoechogenicity is consistent with benign gynecomastia in correlates with the most recent mammogram dated 07/07/2022. No architectural distortion or acoustical shadowing. No skin thickening or axillary adenopathy. IMPRESSION: No sonographic evidence of malignancy. If the patient is also having pain in the right breast as described in the clinical indication, patient should return for right breast ultrasound for full evaluation. In the absence of any additional symptoms,further evaluation of any palpable abnormality should be based on clinical grounds regardless of radiographic findings or lack thereof. ASSESSMENT: BI-RADS Category 2: Benign
== END ==
PROVIDERS: PCP Emergency Medicine; Visit Provider Emergency Medicine
DX: N62 Hypertrophy of breast (principal); N64.4 Mastodynia
CPT/HCPCS: 76641

== ENCOUNTER 2022-11-30 14:34 | Emergency (ER) | payer OTHER, SELFPAY ==
[2022-11-30] VITALS (9 sets, daily range): BP systolic 111–140; BP diastolic 69–96; PULSE 68–82; RESP 18; TEMP 36.7; O2SAT 94–99; BMI 35.5
--- NOTE | 2022-11-30 14:33 | ECG_ITS ---
APPROVED REPORT Exam: Resting ECG HR:73 bpm ECG Measurements Heart Rate 73 AXES AK 152 P 66 QRSd 85 QRS 10 QT 368 T 49 QTc 394 Conclusion SINUS RHYTHM LOW QRS VOLTAGE IN PRECORDIAL LEADS [QRS DEFLECTION < 1.0 mV IN CHEST LEADS] BORDERLINE ECG UNCONFIRMED REPORT Electronically signed by : Jeanmarie Miller MD 11/30/2022 20:08:23
[2022-11-30 14:42] LABS: Microscopic, Urine URINE MICROSCOPIC (MICROSCOPIC)
[2022-11-30 14:48] LABS: Appearance,Urine CLEAR (Clear); Bilirubin,Urine Negative (Negative); Blood, Urine Negative (Negative); Color,Urine YELLOW (Yellow); Glucose,Urine (UA) Negative (Negative); Ketones,Urine Negative (Negative); Leukocyte Esterase,Urine Negative (Negative); Nitrate,Urine Negative (Negative); Protein,Urine Negative (Negative); Urobilinogen,Urine 0.2 EU/dl (0.2)
--- NOTE | 2022-11-30 14:49 | XR_ITS ---
FINAL REPORT CLINICAL HISTORY: CHEST PAIN COMPARISON: March 2017 FINDINGS: The heart size is normal. The mediastinum is within normal limits. There is no acute cardiopulmonary process. There is no pleural effusion. There is no pneumothorax. There is a chronic right clavicle fracture. IMPRESSION: No acute cardiopulmonary process. Reviewed, Interpreted and Dictated by All Garcia III, MD Transcribed by Peter Raymond Authenticated and . [facility]
--- NOTE | 2022-11-30 14:50 | PC.NURSE ---
pt ambulated up to BR pt denies any pain at this time . labs sent up
[2022-11-30 15:00] LABS: Basophils # 0.1 K/mm3 (0-0.2); Basophils % 0.6 % (0.1-2.0); Eosinophils # 0.5 K/mm3 (0.0-0.4); Eosinophils % 4.8 % (0.1-12.0); Hematocrit 42.7 % (42.0-52.0); Hemoglobin 14.3 g/dL (14.1-18.0); Lymphocytes # 2.1 K/mm3 (0.7-4.5); Lymphocytes % 21.9 % (10-50); Mean Corpuscular HGB Conc 33.5 g/dL (31.8-35.4); Mean Corpuscular Hemoglobin 30.1 pg (27.0-31.2); Mean Corpuscular Volume 89.7 fl (80-94); Mean Platelet Volume 7.9 fl (7.4-10.4); Monocytes # 0.5 K/mm3 (0.1-1.0); Monocytes % 4.8 % (1.7-9.3); Neutrophils # 6.4 K/mm3 (1.8-7.8); Platelet Count 255 K/mm3 (142-424); Red Blood Count 4.76 M/mm3 (4.60-6.20); Red Cell Distribution Width 13.2 % (11.5-17.5); White Blood Count 9.5 K/mm3 (4.8-10.8)
[2022-11-30 15:06] LABS: Squamous Epithelial Cell,Urine Occasional #/hpf (0-5)
--- NOTE | 2022-11-30 15:21 | PC.NURSE ---
DR BARRIENTOS AT BEDSIDE
--- NOTE | 2022-11-30 15:23 | PC.NURSE ---
pt ambulatory to restroom without complications
--- NOTE | 2022-11-30 15:24 | HMH.EDCP ---
Discharge Plan Disposition Patient Disposition: Home, Self-Care Prescriptions Prescriptions: No Action cyanocobalamin (vitamin B-12) 1,000 mcg capsule 1,000 mcg PO DAILY topiramate 50 mg tablet See Rx Instructions .ROUTE .COMPLEX Qty: 60 1RF Dose Instruction: TAKE ONE TABLET BY MOUTH EVERY DAY AT BEDTIME Rx Instructions: TAKE 75mg (1.5 tablet) p.o. nightly x1 week. If headaches persist, increase to 100 mg (2 tablets) p.o. nightly until follow-up. docusate sodium [Dulcolax Stool Softener (dss)] 100 mg capsule 100 mg PO DAILY PRN (Reason: constipation) Qty: 30 0RF omeprazole 20 mg capsule,delayed release(DR/EC) See Rx Instructions .ROUTE .COMPLEX Qty: 60 3RF Dose Instruction: TAKE ONE CAPSULE BY MOUTH TWICE DAILY FOR gerd Rx Instructions: TAKE ONE CAPSULE BY MOUTH TWICE DAILY FOR gerd Referrals Follow up/Referrals: Adam Issa MD [Primary Care Provider] - See instructions Teodoro Bonilla MD [Staff Physician] - See instructions Clinical Impressions Clinical Impression: Chest pain Instructions Patient Instructions: DI for Chest Pain Discharge ED Provider: Luis Manuel (ED)Adam Chest Pain HPI General Chief Complaint: Chest Pain Stated Complaint: Chest Pain Time Seen by Provider: 11/30/22 15:24 Mode of Arrival: EMS Source of Information: Patient, EMS and Medical Record Limitations: No Limitations Description of Symptoms (Recalled from ER Triage Doc. by RN): PT BROUGHT IN VIA EMS FOR CHEST PAIN. STARTED ABOUT 0800, LEFT SIDED CHEST AND LEFT ARM PAIN History of Present Illness HPI narrative: pt with onset of ant chest pain this am and improved and then returned and rad to upper ext- pt brought by ems - positive relief complaint: chest pain indicative of cardiac Onset (ago): hour(s) Duration: intermittent Activity at onset: light activity Pain location: left chest Severity: moderate Quality: sharp Pain radiation: LUE Associated symptoms: diaphoresis Risk Factors for CAD: Family Hx of CAD Treatments prior to or on arrival for Cardiac Chest Pain: none JULIUS Score for Non-Stemi Age of Patient: 40-49 years old Heart Rate: 50-69 bpm Systolic Blood Pressure: 120-139 mmhg Serum Creatinine: 0.80-1.19 mg/dl CHF Killip Class: I-No CHF Other Risk Factors: None Non-Stemi Risk Score: 69 Risk Stratification: 1-108 = Low Risk Related Data Home Medications Medication Instructions Recorded Confirmed cyanocobalamin (vitamin B-12) 1,000 mcg PO DAILY 04/06/22 06/08/22 1,000 mcg capsule Previous Rx's Medication Instructions Recorded topiramate 50 mg tablet See Rx Instructions .Route 04/06/22 .COMPLEX Headache #60 tabs docusate sodium 100 mg capsule 100 mg PO DAILY PRN constipation 06/15/22 (Dulcolax Stool Softener #30 caps (docusate)) omeprazole 20 mg capsule,delayed See Rx Instructions .Route 11/19/22 release .COMPLEX #60 caps Allergies Allergy/AdvReac Type Severity Reaction Status Date / Time No Known Allergies Allergy Verified 06/08/22 13:14 [facility] Disclaimer: The information contained in this section may have been updated after the patient was seen, as this information can be updated by other users. Family History Other Asthma Cancer Coronary artery disease Hypertension Stroke Social History Smoking Status: Smoker, status unknown alcohol intake: current substance use type: former substance user and heroin current occupational status: employed Travel in the last 8 weeks: None household members: spouse housing: house marital status: number of children: 1 ROS Obtained: Yes All systems reviewed & no additional complaints except as documented Physical Exam General General appearance: alert Head Head exam: normocephalic Eye Eye exam: Present PERRL and EOMI ENT ENT exam: P
--- NOTE | 2022-11-30 15:34 | PC.NURSE ---
checked on pt nothing needed at this time, tap garcia at bedside
--- NOTE | 2022-11-30 15:46 | PC.NURSE ---
1543-lab states approx 15 minutes left of cmp and troponin results
[2022-11-30 15:47] LABS: Alanine Aminotransferase 97 U/L (12-78); Albumin Level 4.7 g/dl (3.5-5.0); Albumin/Globulin Ratio 1.1 (1.1-1.8); Alkaline Phosphatase 72 U/L (38-126); Anion Gap 19.4 mEq/L (5-15); Aspartate Amino Transferase 95 U/L (17-59); Bilirubin,Total 0.8 mg/dl (0.2-1.3); Blood Urea Nitrogen 11 mg/dl (9-20); Calcium 9.2 mg/dl (8.4-10.2); Carbon Dioxide 29 mmol/L (22.0-30.0); Chloride 94 mmol/L (98-107); Creatinine Clearance Estimated 168 mL/min (50-200); Estimated Glomerular Filt Rate 106 ml/min (>60); GFR (African American) 128 ML/MIN (>60); Globulin 4.2 g/dL (1.3-3.2); Glucose 123 mg/dl (74-100); Potassium 4.4 mmoL/L (3.5-5.1); Sodium 138 mmol/L (136-145); Total Protein,Serum 8.9 g/dl (6.3-8.2)
[2022-11-30 15:59] LABS: Troponin I < 0.01 ng/ml (0.00-0.034)
--- NOTE | 2022-11-30 16:15 | PC.NURSE ---
patient given something to drink. okay'd per ER MD
--- NOTE | 2022-11-30 16:19 | PC.NURSE ---
checked on pt gave him a mt dew with cup of ice, visitor at bedside
--- NOTE | 2022-11-30 17:21 | PC.NURSE ---
rounded on pt no complaints at this time, tap garcia at bedside
--- NOTE | 2022-11-30 17:42 | PC.NURSE ---
green top send to lab for 2nd troponin at this time
[2022-11-30 18:14] LABS: Troponin I < 0.01 ng/ml (0.00-0.034)
--- NOTE | 2022-11-30 18:18 | PC.NURSE ---
DR BARRIENTOS SPEAKING WITH DR DISLA
--- NOTE | 2022-11-30 18:18 | PC.NURSE ---
checked on pt no complaints at this time dr baires told him he about to discharge him home, visitor at bedside
--- NOTE | 2022-11-30 18:25 | PC.NURSE ---
LAB NOTIFIED OF NEW ORDERS
--- NOTE | 2022-11-30 18:30 | PC.NURSE ---
DR BARRIENTOS SPOKE WITH DR DISLA , HE IS TO COME TO THE HIS OFFICE AT 11AM TOMORROW
[2022-11-30 18:36] LABS: Chol/HDL Ratio 3.8 (1-3.5); Cholesterol 150 mg/dl (140-200); HDL Cholesterol 40 mg/dl (40-60); Triglycerides 121 mg/dl (30-150); VLDL Cholesterol 24 mg/dL (0-40)
[2022-11-30 18:46] LABS: Direct LDL Cholesterol 85.82 mg/dL (100-129)
== END 2022-11-30 18:43 | disposition home or self-care (01) ==
PROVIDERS: Emergency Provider Emergency Medicine; PCP Emergency Medicine
DX: R07.9 Chest pain, unspecified (principal); M79.602 Pain in left arm
CPT/HCPCS: 71045; 80053; 80061; 81001; 84484; 85025; 93005; 99285

== ENCOUNTER → 2022-12-01 11:53 | Outpatient (CLI) | payer OTHER, SELFPAY ==
--- NOTE | 2022-12-01 11:57 | CT_ITS ---
FINAL REPORT CLINICAL HISTORY: left side numbness COMPARISON: 02/26/2022 FINDINGS: Axial images of the head were obtained without contrast. Coronal reformatted images were also obtained.This study was performed with techniques to keep radiation doses as low as reasonably achievable (ALARA). Individualized dose reduction techniques using automated exposure control or adjustment of mA and/or kV according to the patient''s size were employed. There is no evidence of intracranial hemorrhage or mass. The ventricular size is within normal limits. There is no evidence of shift of the midline structures. No abnormal extra axial fluid collection is identified. No skull abnormality is seen on the bone window images. There is mucosal thickening in multiple sinuses. Fluid and debris are seen in the right maxillary sinus. IMPRESSION: No acute intracranial abnormality. Findings consistent with sinusitis. Reviewed, Interpreted and Dictated by All Garcia III, MD Transcribed by Veronica Villalobos Authenticated and [facility]
== END ==
PROVIDERS: PCP Emergency Medicine; Visit Provider Nurse Practitioner Family
DX: R06.00 Dyspnea, unspecified (principal); R07.9 Chest pain, unspecified; R42 Dizziness and giddiness; B19.20 Unspecified viral hepatitis C without hepatic coma; N62 Hypertrophy of breast; R20.0 Anesthesia of skin; R53.83 Other fatigue; R73.03 Prediabetes; R94.31 Abnormal electrocardiogram [ECG] [EKG]; E66.9 Obesity, unspecified; Z68.41 Body mass index [BMI] 40.0-44.9, adult
CPT/HCPCS: 70450

== ENCOUNTER 2023-01-23 05:38 | Emergency (ER) | payer OTHER, SELFPAY ==
[2023-01-23 05:39] VITALS: BP 152/116; PULSE 123; RESP 22; TEMP 36.8; O2SAT 99; BMI 38.7
[2023-01-23 05:42] VITALS: BMI 30.4
--- NOTE | 2023-01-23 05:43 | XR_ITS ---
PROCEDURE INFORMATION: Exam: XR Chest Exam date and time: 01/23/2023 7:32 AM Age: 42 years old Clinical indication: Cough and fever; Additional info: Fever, chills, congestion TECHNIQUE: Imaging protocol: Radiologic exam of the chest. Views: 1 view. COMPARISON: CR XR CHEST PORTABLE 11/30/2022 2:53 PM FINDINGS: Lungs: No focal consolidation.. Atelectasis in the left mid lung Pleural spaces: Unremarkable. No pleural effusion. No pneumothorax. Heart/Mediastinum: Unremarkable. No cardiomegaly. Bones/joints: Unremarkable. IMPRESSION: No focal consolidation..
[2023-01-23 05:47] LABS: Coronavirus 19, PCR Not Detected (NotDetected); Influenza A, PCR Not Detected (NotDetected); Influenza B, PCR Not Detected (NotDetected)
--- NOTE | 2023-01-23 05:58 | CT_ITS ---
PROCEDURE INFORMATION: Exam: CT Abdomen And Pelvis With Contrast Exam date and time: 01/23/2023 7:32 AM Age: 42 years old Clinical indication: Fever and nausea and vomiting; Additional info: N/v abd pain, fever TECHNIQUE: Imaging protocol: Computed tomography of the abdomen and pelvis with contrast. Radiation optimization: All CT scans at this facility use at least one of these dose optimization techniques: automated exposure control; mA and/or kV adjustment per patient size (includes targeted exams where dose is matched to clinical indication); or iterative reconstruction. Contrast material: ISOVUE; Contrast volume: 75 ml; Contrast route: IV; REPORTING DATA: Count of CT and Cardiac NM exams in prior 12 months: This patient has received 6 known CTs and 0 known cardiac nuclear medicine studies in the 12 months prior to the current study. COMPARISON: CT ABDOMEN PELVIS WO CON 02/22/2022 10:30 AM FINDINGS: Lungs: Bibasilar atelectasis Liver: Normal. No mass. Gallbladder and bile ducts: Normal. No calcified stones. No ductal dilation. Pancreas: Normal. No ductal dilation. Spleen: Borderline splenomegaly 13.8 cm Adrenal glands: Normal. No mass. Kidneys and ureters: There is no evidence of renal or ureteral calcifications. Stomach and bowel: No bowel obstruction Appendix: Normal appendix Intraperitoneal space: Unremarkable. No free air. No significant fluid collection. Vasculature: Unremarkable. No abdominal aortic aneurysm. Lymph nodes: Unremarkable. No enlarged lymph nodes. Urinary bladder: Unremarkable as visualized. Reproductive: Unremarkable as visualized. Bones/joints: Unremarkable. No acute fracture. Soft tissues: Unremarkable. IMPRESSION: Borderline splenomegaly. 13.8 cm.Differential diagnosis of splenomegaly is lymphoma/leukemia, mononucleosis, hemolytic anemia, portal hypertension.
[2023-01-23 06:16] LABS: Strep Scrn Group A (Rapid) Negative (Negative)
[2023-01-23 06:41] VITALS: BP 115/73; PULSE 68; O2SAT 97
--- NOTE | 2023-01-23 06:47 | PC.NURSE ---
Pt is prescribed Lipitor, Bisprolol, and Omeprizole and is non compliant. states he does not take medicine.
[2023-01-23 07:04] LABS: Alanine Aminotransferase 97 U/L (12-78); Albumin Level 4.9 g/dl (3.5-5.0); Alkaline Phosphatase 105 U/L (38-126); Anion Gap 17.7 mEq/L (5-15); Aspartate Amino Transferase 82 U/L (17-59); Bilirubin,Total 1.5 mg/dl (0.2-1.3); Blood Urea Nitrogen 12 mg/dl (9-20); Carbon Dioxide 23 mmol/L (22.0-30.0); Chloride 104 mmol/L (98-107); Creatinine Clearance Estimated 134 mL/min (50-200); Estimated Glomerular Filt Rate 92 ml/min (>60); GFR (African American) 111 ML/MIN (>60); Globulin 4.7 g/dL (1.3-3.2); Glucose 193 mg/dl (74-100); Lactic Acid 1.2 mmol/L (0.7-2.1); Potassium 3.7 mmoL/L (3.5-5.1); Sodium 141 mmol/L (136-145); Total Protein,Serum 9.6 g/dl (6.3-8.2)
[2023-01-23 07:23] LABS: Procalcitonin 0.141 ng/mL (0.0-2.0)
[2023-01-23 07:31] LABS: Erythrocyte Sedimentation Rate 15 mm/hr (0-15)
[2023-01-23 07:35] LABS: Basophils % 0.3 % (0.1-2.0); Eosinophils % 0.5 % (0.1-12.0); Hematocrit 44.2 % (42.0-52.0); Hemoglobin 14.9 g/dL (14.1-18.0); Lymphocytes # 0.9 K/mm3 (0.7-4.5); Lymphocytes % 10.9 % (10-50); Mean Corpuscular HGB Conc 33.7 g/dL (31.8-35.4); Mean Corpuscular Hemoglobin 29.8 pg (27.0-31.2); Mean Corpuscular Volume 88.4 fl (80-94); Mean Platelet Volume 7.9 fl (7.4-10.4); Monocytes # 0.4 K/mm3 (0.1-1.0); Monocytes % 4.4 % (1.7-9.3); Neutrophils % 83.8 % (37.0-80.0); Platelet Count 318 K/mm3 (142-424); Red Cell Distribution Width 13.5 % (11.5-17.5); White Blood Count 8.3 K/mm3 (4.8-10.8)
--- NOTE | 2023-01-23 07:57 | HMH.EDABDPAI ---
Discharge Plan Disposition Patient Disposition: Home, Self-Care Condition: Fair Prescriptions Prescriptions: New dicyclomine 10 mg capsule 10 mg PO TID Qty: 10 0RF ondansetron 4 mg tablet,disintegrating 4 mg PO Q8H PRN (Reason: nausea and vomiting) 3 Days Qty: 20 0RF No Action atorvastatin [Lipitor] 10 mg tablet 10 mg PO DAILY bisoprolol fumarate 5 mg tablet 5 mg PO QDAY omeprazole 20 mg capsule,delayed release(DR/EC) See Rx Instructions .ROUTE .COMPLEX Rx Instructions: TAKE ONE CAPSULE BY MOUTH TWICE DAILY FOR gerd Referrals Follow up/Referrals: Adam Issa MD [Primary Care Provider] - See instructions Clinical Impressions Clinical Impression: Vomiting, Splenomegaly, Abdominal pain Instructions Patient Instructions: DI for Acute Abdominal Pain Print Language Print Language: Maori Discharge ED Provider: [place] Abdominal Pain HPI General Chief Complaint: Abdominal Pain Stated Complaint: fever, chills, vomiting, aching, sweats Time Seen by Provider: 01/23/23 07:54 Mode of Arrival: Wheelchair Source of Information: Patient and Significant Other Limitations: No Limitations Description of Symptoms (Recalled from ER Triage Doc. by RN): Pt complains of abdominal pain with chills,nausea and vomiting that started yesterday after he got home from work. Pt admits to snorting heroin prior to arrival. History of Present Illness HPI narrative: Pt complains of lower abdominal pain and vomiting. The patient denies diarrhea. Pt reports subjuctive fever. Pt reports that his is also sick MD complaint: abdominal pain Onset (ago): day(s) Consistency: constant Location: LLQ and RLQ Severity: moderate Quality: dull Relieving factors: nothing Exacerbating factors: nothing Associated symptoms: nausea, vomiting and fever Related Data Home Medications Medication Instructions Recorded Confirmed atorvastatin 10 mg tablet (Lipitor) 10 mg PO DAILY Cholesterol 01/06/23 01/23/23 bisoprolol fumarate 5 mg tablet 5 mg PO QDAY HTN 01/06/23 01/23/23 omeprazole 20 mg capsule,delayed See Rx Instructions .Route 01/06/23 01/23/23 release .COMPLEX Reflux/Acid reflux Previous Rx's Medication Instructions Recorded dicyclomine 10 mg capsule 10 mg PO TID #10 caps 01/23/23 ondansetron 4 mg disintegrating 4 mg PO Q8H PRN nausea and 01/23/23 tablet vomiting 3 days #20 tabs Allergies Allergy/AdvReac Type Severity Reaction Status Date / Time No Known Allergies Allergy Verified 01/06/23 14:12 PFSH [facility] Disclaimer: The information contained in this section may have been updated after the patient was seen, as this information can be updated by other users. Medical History (Updated 01/23/23 @ 09:27 by [place] MD) Abnormal electrocardiogram [ECG] [EKG] Dizziness Dyspnea Fatigue Left sided numbness Surgical History (Updated 01/06/23 @ 14:19 by Niyah Mendoza, RN) Hx of oral surgery No significant past surgical history Family History Other Asthma Cancer Coronary artery disease Hypertension Stroke Social History (Updated 01/06/23 @ 14:24 by Niyah Mendoza, RN) Smoking Status: Never smoker alcohol intake: current substance use type: former substance user, heroin and opiates current occupational status: unemployed Travel in the last 8 weeks: Inside the [place] household members: spouse and children housing: house marital status: number of children: 1 education level: high school service: No caffeine: Yes special margarita needs: No do you feel safe at home: Yes victim of physical abuse: No victim of emotional abuse: No victim of sexual abuse: No would you like helpful sources: No ROS Obtained: Yes Systems reviewed as appropriate & no additional complaints except as documented Constitutional Constitutional: Reports fever(s) Gastro
[2023-01-23 08:19] LABS: Microscopic, Urine URINE MICROSCOPIC (MICROSCOPIC)
[2023-01-23 08:38] LABS: Appearance,Urine CLEAR (Clear); Blood, Urine Negative (Negative); Color,Urine DK YELLOW (Yellow); Glucose,Urine (UA) Negative (Negative); Ketones,Urine 3+ (Negative); Leukocyte Esterase,Urine Negative (Negative); Nitrate,Urine Negative (Negative); PH,Urine 5.5 (5.0-8.5); Protein,Urine 1+ (Negative)
[2023-01-23 09:01] LABS: Bilirubin,Urine Negative (Negative)
[2023-01-23 09:25] LABS: Amorphous Sediment,Urine Trace /lpf; Squamous Epithelial Cell,Urine Occasional #/hpf (0-5); WBC,Urine Occasional #/hpf (0-3)
[2023-01-23 10:00] VITALS: BP 149/98; PULSE 94; RESP 18; TEMP 36.8; O2SAT 98
== END 2023-01-23 10:03 | disposition home or self-care (01) ==
PROVIDERS: Emergency Provider Emergency Medicine; PCP Emergency Medicine
DX: R10.31 Right lower quadrant pain (principal); R10.32 Left lower quadrant pain; R16.1 Splenomegaly, not elsewhere classified; R11.2 Nausea with vomiting, unspecified
CPT/HCPCS: 71045; 74177; 80053; 81001; 83605; 84145; 85025; 85651; 86140; 87040; 87430; 87636; 96361; 96374; 96375; 99284; 99285; J2405; Q9967

== ENCOUNTER → 2023-02-04 07:28 | Outpatient (CLI) | payer OTHER, SELFPAY ==
[2023-02-04 08:17] LABS: INR 1.02 (0.9-1.1)
[2023-02-04 08:43] LABS: Chloride 105 mmol/L (98-107); Sodium 141 mmol/L (136-145)
[2023-02-04 08:46] LABS: Alanine Aminotransferase 67 U/L (12-78); Albumin Level 3.9 g/dl (3.5-5.0); Albumin/Globulin Ratio 1.2 (1.1-1.8); Alkaline Phosphatase 65 U/L (38-126); Aspartate Amino Transferase 66 U/L (17-59); Bilirubin,Total 0.7 mg/dl (0.2-1.3); Blood Urea Nitrogen 8 mg/dl (9-20); Calcium 9.1 mg/dl (8.4-10.2); Carbon Dioxide 29 mmol/L (22.0-30.0); Estimated Glomerular Filt Rate 105 ml/min (>60); GFR (African American) 127 ML/MIN (>60); Globulin 3.2 g/dL (1.3-3.2); Glucose 105 mg/dl (74-100); Total Protein,Serum 7.1 g/dl (6.3-8.2)
[2023-02-04 13:35] LABS: Basophils % 0.6 % (0.1-2.0); Eosinophils # 0.4 K/mm3 (0.0-0.4); Eosinophils % 9.4 % (0.1-12.0); Hemoglobin 12.2 g/dL (14.1-18.0); Lymphocytes # 1.4 K/mm3 (0.7-4.5); Lymphocytes % 31.5 % (10-50); Mean Corpuscular HGB Conc 34.8 g/dL (31.8-35.4); Mean Corpuscular Hemoglobin 32.1 pg (27.0-31.2); Mean Corpuscular Volume 92.2 fl (80-94); Mean Platelet Volume 8.9 fl (7.4-10.4); Monocytes # 0.3 K/mm3 (0.1-1.0); Monocytes % 6.7 % (1.7-9.3); Neutrophils # 2.3 K/mm3 (1.8-7.8); Neutrophils % 51.8 % (37.0-80.0); Platelet Count 235 K/mm3 (142-424); Red Blood Count 3.79 M/mm3 (4.60-6.20); Red Cell Distribution Width 14.1 % (11.5-17.5); White Blood Count 4.4 K/mm3 (4.8-10.8)
[2023-02-09 20:14] LABS: HCV Genotype Charge YES; Hepatitis C Genotype 3 (.)
[2023-02-26 17:22] LABS: HIV Screen 4th Generation wRfx Non Reactive
[2023-02-26 17:23] LABS: Hep A Ab, Total Negative; Hep B Core Ab, Total Negative; Hep B Surface Ab, Qual Non Reactive; Hepatitis B Surface Antigen Negative; Hepatitis C Antibody Reactive
== END ==
LOC: LAB 07:28
PROVIDERS: PCP Emergency Medicine; Visit Provider Emergency Medicine
DX: R94.5 Abnormal results of liver function studies (principal); Z79.899 Other long term (current) drug therapy; Z11.4 Encounter for screening for human immunodeficiency virus [HIV]
CPT/HCPCS: 36415; 80053; 85025; 85610; 86703; 86704; 86706; 86708; 87340; 87380; 87522; 87902; G0432

== ENCOUNTER → 2023-05-11 19:33 | Outpatient (CLI) | payer OTHER, SELFPAY ==
[2023-05-11 20:01] LABS: Basophils # 0.1 K/mm3 (0-0.2); Basophils % 0.7 % (0.1-2.0); Eosinophils # 0.4 K/mm3 (0.0-0.4); Eosinophils % 3.6 % (0.1-12.0); Hematocrit 37.4 % (42.0-52.0); Lymphocytes # 2.6 K/mm3 (0.7-4.5); Lymphocytes % 25.2 % (10-50); Mean Corpuscular HGB Conc 34.8 g/dL (31.8-35.4); Mean Corpuscular Hemoglobin 31.9 pg (27.0-31.2); Mean Corpuscular Volume 91.6 fl (80-94); Mean Platelet Volume 7.7 fl (7.4-10.4); Monocytes # 0.5 K/mm3 (0.1-1.0); Monocytes % 4.9 % (1.7-9.3); Neutrophils # 6.7 K/mm3 (1.8-7.8); Neutrophils % 65.7 % (37.0-80.0); Platelet Count 240 K/mm3 (142-424); Red Blood Count 4.08 M/mm3 (4.60-6.20); Red Cell Distribution Width 13.2 % (11.5-17.5); White Blood Count 10.3 K/mm3 (4.8-10.8)
[2023-05-11 20:45] LABS: Chloride 105 mmol/L (98-107); Potassium 3.7 mmoL/L (3.5-5.1); Sodium 140 mmol/L (136-145)
[2023-05-11 20:47] LABS: Blood Urea Nitrogen 20 mg/dl (9-20); Estimated Glomerular Filt Rate 81 ml/min (>60); GFR (African American) 98 ML/MIN (>60)
[2023-05-11 20:48] LABS: Alanine Aminotransferase 72 U/L (12-78); Albumin Level 4.4 g/dl (3.5-5.0); Albumin/Globulin Ratio 1.2 (1.1-1.8); Alkaline Phosphatase 57 U/L (38-126); Anion Gap 14.7 mEq/L (5-15); Aspartate Amino Transferase 70 U/L (17-59); Bilirubin,Total 0.3 mg/dl (0.2-1.3); Calcium 8.8 mg/dl (8.4-10.2); Carbon Dioxide 24 mmol/L (22.0-30.0); Globulin 3.7 g/dL (1.3-3.2); Glucose 127 mg/dl (74-100); Total Protein,Serum 8.1 g/dl (6.3-8.2)
[2023-05-16 09:19] LABS: Hepatitis C Antibody Reactive
== END ==
PROVIDERS: PCP Emergency Medicine; Visit Provider Nurse Practitioner Family
DX: B19.20 Unspecified viral hepatitis C without hepatic coma (principal)
CPT/HCPCS: 80053; 85025; 87380; 87522

== ENCOUNTER 2023-07-22 15:00 | Outpatient (CLI) | payer OTHER, SELFPAY ==
[2023-07-22 15:45] LABS: Basophils # 0.1 K/mm3 (0-0.2); Basophils % 0.6 % (0.1-2.0); Eosinophils # 0.3 K/mm3 (0.0-0.4); Eosinophils % 2.3 % (0.1-12.0); Hemoglobin 14.3 g/dL (14.1-18.0); Lymphocytes # 2.7 K/mm3 (0.7-4.5); Lymphocytes % 19.5 % (10-50); Mean Corpuscular HGB Conc 33.2 g/dL (31.8-35.4); Mean Corpuscular Hemoglobin 31.4 pg (27.0-31.2); Mean Corpuscular Volume 94.5 fl (80-94); Mean Platelet Volume 8.2 fl (7.4-10.4); Monocytes # 0.7 K/mm3 (0.1-1.0); Monocytes % 4.8 % (1.7-9.3); Neutrophils # 9.9 K/mm3 (1.8-7.8); Neutrophils % 72.9 % (37.0-80.0); Platelet Count 313 K/mm3 (142-424); Red Blood Count 4.55 M/mm3 (4.60-6.20); Red Cell Distribution Width 13.5 % (11.5-17.5); White Blood Count 13.6 K/mm3 (4.8-10.8)
[2023-07-22 16:17] LABS: Alanine Aminotransferase 87 U/L (12-78); Albumin Level 4.4 g/dl (3.5-5.0); Albumin/Globulin Ratio 1.3 (1.1-1.8); Alkaline Phosphatase 58 U/L (38-126); Aspartate Amino Transferase 64 U/L (17-59); Bilirubin,Total 0.7 mg/dl (0.2-1.3); Blood Urea Nitrogen 9 mg/dl (9-20); Calcium 8.9 mg/dl (8.4-10.2); Carbon Dioxide 31 mmol/L (22.0-30.0); Chloride 97 mmol/L (98-107); Estimated Glomerular Filt Rate 105 ml/min (>60); GFR (African American) 127 ML/MIN (>60); Globulin 3.5 g/dL (1.3-3.2); Glucose 141 mg/dl (74-100); Sodium 133 mmol/L (136-145); Total Protein,Serum 7.9 g/dl (6.3-8.2)
[2023-08-03 08:48] LABS: Hepatitis C Antibody Reactive
== END 2023-07-22 23:59 ==
LOC: LAB 15:01
PROVIDERS: PCP Physician Assistant; Visit Provider Nurse Practitioner Family
DX: B19.20 Unspecified viral hepatitis C without hepatic coma (principal)
CPT/HCPCS: 36415; 80053; 85025; 87380; 87522

== ENCOUNTER 2024-01-18 20:55 | Emergency (ER) | payer OTHER, SELFPAY ==
[2024-01-18 21:00] VITALS: BP 147/117; PULSE 85; RESP 13; O2SAT 99
--- NOTE | 2024-01-18 21:03 | ECG_ITS ---
APPROVED REPORT Exam: Resting ECG HR:82 bpm ECG Measurements Heart Rate 82 AXES W[place] 150 P 41 QRSd 102 QRS 13 QT 378 T 45 QTc 416 Conclusion Sinus rhythm Old inferior OK Electronically signed by : DAVID SALAZAR, 01/18/2024 22:46:32
--- NOTE | 2024-01-18 21:07 | HMH.EDGENADL ---
Discharge Plan Disposition Patient Disposition: Home, Self-Care Condition: Good Prescriptions Prescriptions: No Action methylprednisolone [Medrol (Jose)] 4 mg tablets,dose pack See Rx Instructions PO PER PKG DIR Qty: 21 0RF Rx Instructions: PO PER PKG DIR omeprazole 20 mg capsule,delayed release(DR/EC) See Rx Instructions .ROUTE .COMPLEX Qty: 60 3RF Dose Instruction: TAKE ONE CAPSULE BY MOUTH TWICE DAILY FOR gerd Rx Instructions: TAKE ONE CAPSULE BY MOUTH TWICE DAILY FOR gerd atorvastatin [Lipitor] 10 mg tablet 10 mg PO DAILY bisoprolol fumarate 5 mg tablet 5 mg PO QDAY Referrals Follow up/Referrals: Teodoro Bonilla MD [Staff Physician] - See instructions (Arrhythmia, untreated sleep apnea) Provider,MD Kamilah [Referring] - See instructions Activity Restrictions/Add. Instructions Additional Instructions/Restrictions: Please keep your follow-up with cardiology. You need to call after the holiday to make an appointment. Follow-up with your PCP in 1 week. Return to the ER for any worsening signs or symptoms. Clinical Impressions Clinical Impression: Arrhythmia Qualifiers: Arrhythmia type: unspecified cardiac arrhythmia Qualified Code(s): I49.9 - Cardiac arrhythmia, unspecified Instructions Patient Instructions: DI for Arrhythmias Discharge ED Provider: Jame Danielle General Adult HPI <LAYLA Maciel - Last Filed: 01/18/24 22:39> General Chief complaint: Arrhythmia/Palpitations Stated complaint: dizzy,heartrate is fast Time Seen by Provider: 01/18/24 20:57 History of Present Illness HPI narrative: Patient presents for evaluation of fast heart rate. Patient has had periodic episodes of tachycardia that he is very symptomatic of. They do not last very long however he became scared when it was significantly high today. He also has had periods of bradycardia down into the 40s. He also has a history of sleep apnea that is not currently being treated with CPAP. He denies currently chest pain shortness of breath fever chills hemoptysis hematochezia melena nausea vomit diarrhea. Patient is completely asymptomatic currently Related Data Home Medications Medication Instructions Recorded Confirmed atorvastatin 10 mg tablet (Lipitor) 10 mg PO DAILY Cholesterol 01/06/23 07/22/23 bisoprolol fumarate 5 mg tablet 5 mg PO QDAY HTN 01/06/23 07/22/23 Previous Rx's Medication Instructions Recorded methylprednisolone 4 mg tablets in See Rx Instructions PO PER PKG DIR 07/25/23 a dose pack (Medrol (Jose)) #21 tabs omeprazole 20 mg capsule,delayed See Rx Instructions .Route 01/17/24 release .COMPLEX #60 caps Allergies Allergy/AdvReac Type Severity Reaction Status Date / Time No Known Allergies Allergy Verified 07/22/23 14:10 [facility] <LAYLA Maciel - Last Filed: 01/18/24 22:39> [facility] Disclaimer: The information contained in this section may have been updated after the patient was seen, as this information can be updated by other users. Medical History Abnormal electrocardiogram [ECG] [EKG] Dizziness Dyspnea Fatigue Left sided numbness Surgical History Hx of oral surgery No significant past surgical history Family History Other Asthma Cancer Coronary artery disease Hypertension Stroke Social History Smoking Status: Never smoker alcohol intake: current alcohol intake frequency: holidays/special occasions only substance use type: former substance user, heroin and opiates current occupational status: unemployed Travel in the last 8 weeks: Inside the [place] household members: spouse and children housing: house marital status: number of children: 1 education level: high school service: No caffeine: Yes special margarita needs: No do you feel safe at home: Yes victim of physical abuse: No victim of emotional abuse: No victim of sexual abuse: No would you like helpful sources: No <LAYLA Maciel - Last Filed: 01/18/24 22:39> ROS Obtained: Yes Systems reviewed as appropriate & no additional complaints except as documented Physical Exam <LAYLA Maciel - Last Filed: 01/18/24 22:39> General General appearance: alert and in no apparent distress Head Head exam: atraumatic and normal inspection Eye Eye exam: Present normal appearance, PERRL and EOMI ENT ENT exam: Present normal exam, normal oropharynx and mucous membranes moist Neck Neck exam: Present normal inspection, full ROM and trachea midline; Absent lymphadenopathy Chest Chest inspection: Present normal inspection and symmetric chest wall rise Respiratory Respiratory exam: Present normal lung sounds bilaterally; Absent accessory muscle use Cardiovascular Cardiovascular exam: Present regular rate, normal rhythm, normal heart sounds, +S1 and +S2 Abdominal Exam Abdominal exam: Present soft and normal bowel sounds; Absent tenderness, guarding or rebound Extremities Exam Extremities exam: Present normal inspection and full ROM Neurological Exam Neurological exam: Present alert, oriented X3 and CN II-XII intact Psychiatric Psychiatric exam: Present normal affect and normal mood Skin Skin exam: Present warm, dry and normal color Lymphatic Lymphatic Findings: no adenopathy Medical Decision Making <LAYLA Maciel - Last Filed: 01/18/24 22:39> Medical Records Medical records reviewed: Yes I reviewed the patient's medical records. Dario Inquiry Pt receiving controlled substance: No Vital Signs: 01/18/24 21:00 01/18/24 21:09 Temperature 98.6 F Temperature Source Oral Pulse Rate 85 Pulse Rate [Right Radial] 84 Respiratory Rate 13 16 Blood Pressure 147/117 H Blood Pressure [Right Arm] 147/117 H Blood Pressure Mean 125 Blood Pressure Mean [Right Arm] 127 Blood Pressure Source [Right Arm] Automatic Cuff Blood Pressure Position [Right Arm] Supine 02 Sat by Pulse Oximetry 99 99 Oxygen Delivery Method Room Air Room Air Lab Data Lab results reviewed: Yes I reviewed the patient's lab results. Lab Results 01/18/24 22:04: WBC 9.1, RBC 4.83, Hgb 14.8, Hct 43.3, MCV 89.7, MCH 30.7, MCHC 34.2, RDW 13.5, Plt Count 284, MPV 7.6, Neut % (Auto) 61.2, Lymph % (Auto) 25.1, [place] % (Auto) 5.1, Eos % (Auto) 7.7, Baso % (Auto) 0.8, Neut # (Auto) 5.6, Lymph # (Auto) 2.3, [place] # (Auto) 0.5, Eos # (Auto) 0.7 H, Baso # (Auto) 0.1, PT 11.0, INR 0.98, Sodium 138, Potassium 3.7, Chloride 98, Carbon Dioxide 32 H, Anion Gap 11.7, BUN 12, Creatinine 0.90, Estimated Creat Clear 94, Estimated GFR 91, Est GFR ( Amer) 110, Glucose 169 H, Calcium 9.8, Magnesium 1.6, Total Bilirubin 0.4, AST 43, ALT 60, Alkaline Phosphatase 59, Total Protein 8.6 H, Albumin 4.6, Globulin 4.0 H, Albumin/Globulin Ratio 1.2 01/18/24 22:21: Urine Color Yellow, Urine Appearance Clear, Urine pH 6.0, Ur Specific [place] 1.010, Urine Protein Negative, Urine Glucose (UA) Negative, Urine Ketones Negative, Urine Blood Negative, Urine Nitrate Negative, Urine Bilirubin Negative, Urine Urobilinogen 0.2, Ur Leukocyte Esterase Negative, Urine RBC None, Urine WBC None, Ur Squamous Epith Cells Occasional, Urine Bacteria None 01/18/24 22:04 01/18/24 22:04 Orders (Tests/Meds): ORDERS Category Date Time Status Chest XR -- portable [XR chest portable] Stat Exams 01/18/24 21:13 Taken CBC w/Auto Diff [Complete Blood Count Auto Diff] Stat Lab 01/18/24 22:04 Completed CMP [Comprehensive Metabolic Panel] Stat Lab 01/18/24 22:04 Results Hemoglobin A1C Stat Lab 01/18/24 22:04 Received INR [Prothrombin Time INR] Stat Lab 01/18/24 22:04 Completed Magnesium Stat Lab 01/18/24 22:04 Results Thyroid Panel Stat Lab 01/18/24 22:04 Received Trop I [Troponin I] Stat Lab 01/18/24 22:04 Results Troponin I Q3H Lab 01/19/24 00:15 Ordered Troponin I Q3H Lab 01/19/24 03:15 Ordered UA [Urinalysis and Microscopic] Stat Lab 01/18/24 22:21 Completed UDS [Drug Screen,Urine] Stat Lab 01/18/24 22:21 Received Medical Decision Narrative: In summary patient is a 43-year-old male who presents to the emergency department for evaluation of arrhythmia. Patient is currently hemodynamically stable with a heart rate of 85 upon arrival, afebrile. Physical exam is remarkable for BMI 43 but otherwise normal heart sounds normal breath sounds [place] Coma Score 15. Differential diagnosis includes arrhythmia versus ACS versus untreated sleep apnea etc. Initial workup will be conducted with hematologic labs twelve-lead EKG plain film chest x-ray. Initial interventions were considered including chemical cardioversion versus energy cardioversion however patient is completely asymptomatic currently thus interventions are deferred. Initial workup reviewed by me shows that his hematologic labs are nonactionable. Upon repeat evaluation patient has had no symptoms while in the emergency department. Given this appropriate for discharge with referral to cardiology and patient to make appointment at first opportunity when the office is open after the holiday <Jame Danielle MD - Last Filed: 01/18/24 22:41> Vital Signs: 01/18/24 21:00 01/18/24 21:09 Temperature 98.6 F Temperature Source Oral Pulse Rate 85 Pulse Rate [Right Radial] 84 Respiratory Rate 13 16 Blood Pressure 147/117 H Blood Pressure [Right Arm] 147/117 H Blood Pressure Mean 125 Blood Pressure Mean [Right Arm] 127 Blood Pressure Source [Right Arm] Automatic Cuff Blood Pressure Position [Right Arm] Supine 02 Sat by Pulse Oximetry 99 99 Oxygen Delivery Method Room Air Room Air Lab Data Lab Results 01/18/24 22:04: WBC 9.1, RBC 4.83, Hgb 14.8, Hct 43.3, MCV 89.7, MCH 30.7, MCHC 34.2, RDW 13.5, Plt Count 284, MPV 7.6, Neut % (Auto) 61.2, Lymph % (Auto) 25.1, [place] % (Auto) 5.1, Eos % (Auto) 7.7, Baso % (Auto) 0.8, Neut # (Auto) 5.6, Lymph # (Auto) 2.3, [place] # (Auto) 0.5, Eos # (Auto) 0.7 H, Baso # (Auto) 0.1, PT 11.0, INR 0.98, Sodium 138, Potassium 3.7, Chloride 98, Carbon Dioxide 32 H, Anion Gap 11.7, BUN 12, Creatinine 0.90, Estimated Creat Clear 94, Estimated GFR 91, Est GFR ( Amer) 110, Glucose 169 H, Calcium 9.8, Magnesium 1.6, Total Bilirubin 0.4, AST 43, ALT 60, Alkaline Phosphatase 59, Total Protein 8.6 H, Albumin 4.6, Globulin 4.0 H, Albumin/Globulin Ratio 1.2 01/18/24 22:21: Urine Color Yellow, Urine Appearance Clear, Urine pH 6.0, Ur Specific [place] 1.010, Urine Protein Negative, Urine Glucose (UA) Negative, Urine Ketones Negative, Urine Blood Negative, Urine Nitrate Negative, Urine Bilirubin Negative, Urine Urobilinogen 0.2, Ur Leukocyte Esterase Negative, Urine RBC None, Urine WBC None, Ur Squamous Epith Cells Occasional, Urine Bacteria None Orders (Tests/Meds): ORDERS Category Date Time Status Chest XR -- portable [XR chest portable] Stat Exams 01/18/24 21:13 Taken CBC w/Auto Diff [Complete Blood Count Auto Diff] Stat Lab 01/18/24 22:04 Completed CMP [Comprehensive Metabolic Panel] Stat Lab 01/18/24 22:04 Results Hemoglobin A1C Stat Lab 01/18/24 22:04 Received INR [Prothrombin Time INR] Stat Lab 01/18/24 22:04 Completed Magnesium Stat Lab 01/18/24 22:04 Results Thyroid Panel Stat Lab 01/18/24 22:04 Received Trop I [Troponin I] Stat Lab 01/18/24 22:04 Results Troponin I Q3H Lab 01/19/24 00:15 Ordered Troponin I Q3H Lab 01/19/24 03:15 Ordered UA [Urinalysis and Microscopic] Stat Lab 01/18/24 22:21 Completed UDS [Drug Screen,Urine] Stat Lab 01/18/24 22:21 Received Medical Decision Narrative: In summary patient is a 43-year-old male who presents to the emergency department for evaluation of arrhythmia. Patient is currently hemodynamically stable with a heart rate of 85 upon arrival, afebrile. Physical exam is remarkable for BMI 43 but otherwise normal heart sounds normal breath sounds [place] Coma Score 15. Differential diagnosis includes arrhythmia versus ACS versus untreated sleep apnea etc. Initial workup will be conducted with hematologic labs twelve-lead EKG plain film chest x-ray. Initial interventions were considered including chemical cardioversion versus energy cardioversion however patient is completely asymptomatic currently thus interventions are deferred. Initial workup reviewed by me shows that his hematologic labs are nonactionable. Upon repeat evaluation patient has had no symptoms while in the emergency department. Given this appropriate for discharge with referral to cardiology and patient to make appointment at first opportunity when the office is open after the holiday EKG independently interpreted. Sinus rhythm 82 beats a minute. DE 150, QRS 102, QTc 416. [place] normal. No ischemic change. I was consulted by the MARTHA, and we discussed the complexity of the problems being addressed. I approved the treatment and management plan for this patient?s care in the Emergency Department, thus performing a substantive portion of the medical decision making. Jame Danielle MD Critical Care <LAYLA Maciel - Last Filed: 01/18/24 22:39> Critical Care Time Critical Care Time: No
[2024-01-18 21:09] VITALS: BP 147/117; PULSE 84; RESP 16; TEMP 37; O2SAT 99; BMI 43.5
--- NOTE | 2024-01-18 21:09 | PC.NURSE ---
EKG completed at 210
--- NOTE | 2024-01-18 21:13 | XR_ITS ---
PROCEDURE INFORMATION: Exam: XR Chest Exam date and time: 01/18/2024 9:21 PM Age: 43 years old Clinical indication: Other: Arrhythmia TECHNIQUE: Imaging protocol: Radiologic exam of the chest. Views: 1 view. COMPARISON: CR XR CHEST PORTABLE 01/23/2023 7:32 AM FINDINGS: Lungs: Unremarkable. No consolidation. Pleural spaces: Unremarkable. No pleural effusion. No pneumothorax. Heart/Mediastinum: Unremarkable. No cardiomegaly. Bones/joints: Old, healed distal right clavicle fracture. No acute fracture. IMPRESSION: No acute disease
[2024-01-18 22:06] VITALS: BP 119/74; PULSE 65; RESP 14; O2SAT 98
[2024-01-18 22:21] LABS: Basophils # 0.1 K/mm3 (0-0.2); Basophils % 0.8 % (0.1-2.0); Eosinophils # 0.7 K/mm3 (0.0-0.4); Eosinophils % 7.7 % (0.1-12.0); Hematocrit 43.3 % (42.0-52.0); Hemoglobin 14.8 g/dL (14.1-18.0); Lymphocytes # 2.3 K/mm3 (0.7-4.5); Lymphocytes % 25.1 % (10-50); Mean Corpuscular HGB Conc 34.2 g/dL (31.8-35.4); Mean Corpuscular Hemoglobin 30.7 pg (27.0-31.2); Mean Corpuscular Volume 89.7 fl (80-94); Mean Platelet Volume 7.6 fl (7.4-10.4); Monocytes # 0.5 K/mm3 (0.1-1.0); Monocytes % 5.1 % (1.7-9.3); Neutrophils # 5.6 K/mm3 (1.8-7.8); Neutrophils % 61.2 % (37.0-80.0); Platelet Count 284 K/mm3 (142-424); Red Blood Count 4.83 M/mm3 (4.60-6.20); Red Cell Distribution Width 13.5 % (11.5-17.5); White Blood Count 9.1 K/mm3 (4.8-10.8)
[2024-01-18 22:24] LABS: Chloride 98 mmol/L (98-107)
[2024-01-18 22:25] LABS: Potassium 3.7 mmoL/L (3.5-5.1); Sodium 138 mmol/L (136-145)
[2024-01-18 22:27] LABS: Alanine Aminotransferase 60 U/L (12-78); Albumin Level 4.6 g/dl (3.5-5.0); Alkaline Phosphatase 59 U/L (38-126); Anion Gap 11.7 mEq/L (5-15); Aspartate Amino Transferase 43 U/L (17-59); Bilirubin,Total 0.4 mg/dl (0.2-1.3); Blood Urea Nitrogen 12 mg/dl (9-20); Carbon Dioxide 32 mmol/L (22.0-30.0); Creatinine Clearance Estimated 94 mL/min (50-200); Estimated Glomerular Filt Rate 91 ml/min (>60); GFR (African American) 110 ML/MIN (>60)
[2024-01-18 22:28] LABS: Albumin/Globulin Ratio 1.2 (1.1-1.8); Calcium 9.8 mg/dl (8.4-10.2); Glucose 169 mg/dl (74-100); INR 0.98 (0.9-1.1); Magnesium 1.6 mg/dl (1.6-2.3); Total Protein,Serum 8.6 g/dl (6.3-8.2)
[2024-01-18 22:28] LABS: Microscopic, Urine URINE MICROSCOPIC (MICROSCOPIC)
[2024-01-18 22:31] VITALS: BP 113/59; PULSE 76; RESP 13; O2SAT 98
[2024-01-18 22:32] LABS: Appearance,Urine CLEAR (Clear); Bilirubin,Urine Negative (Negative); Blood, Urine Negative (Negative); Color,Urine YELLOW (Yellow); Glucose,Urine (UA) Negative (Negative); Ketones,Urine Negative (Negative); Leukocyte Esterase,Urine Negative (Negative); Nitrate,Urine Negative (Negative); Protein,Urine Negative (Negative); Urobilinogen,Urine 0.2 EU/dl (0.2)
[2024-01-18 22:40] LABS: Squamous Epithelial Cell,Urine Occasional #/hpf (0-5)
[2024-01-18 22:44] LABS: Troponin I < 0.01 ng/ml (0.00-0.034)
[2024-01-18 22:44] LABS: Amphetamine/Metha Screen,Urine Negative ng/ml (<1000); Benzodiazepines Screen,Urine Negative ng/ml (<200)
[2024-01-18 22:45] LABS: Barbiturates Screen,Urine Negative ng/ml (<200)
[2024-01-18 22:46] LABS: Cannabinoid Screen,Urine Negative ng/ml (<50); Methadone Screen,Urine Negative ng/ml (<300)
[2024-01-18 22:47] LABS: Cocaine Screen,Urine Negative ng/ml (<300); Opiate Screen,Urine Negative ng/ml (<300)
[2024-01-18 22:47] LABS: Free Thyroxine Index 3.2 ug/dL (5.93-13.13); Triiodothryronine (T3) Uptake 32 % (23.5-40.5)
[2024-01-18 22:48] LABS: Phencyclidine Screen,Urine Negative ng/ml (<25)
[2024-01-18 22:52] VITALS: BP 113/59; PULSE 77; RESP 20; TEMP 36.7; O2SAT 98
[2024-01-18 22:52] LABS: Hemoglobin A1C 7.4 % (4.0-6.0)
[2024-01-18 22:59] LABS: Thyroid Stimulating Hormone 1.95 uIU/mL (0.465-4.68)
== END 2024-01-18 22:53 | disposition home or self-care (01) ==
PROVIDERS: Physician Assistant; Emergency Provider Emergency Medicine; PCP Nurse Practitioner Family
DX: I49.9 Cardiac arrhythmia, unspecified (principal)
CPT/HCPCS: 71045; 80053; 80307; 81001; 83036; 83735; 84436; 84443; 84479; 84484; 85025; 85610; 93005; 99284